=== PATIENT | male | born 1950 | race Caucasian/White ===

== ENCOUNTER 2023-06-30 12:09 | Outpatient (CLI) | payer MEDICARE, OTHER, SELFPAY ==
--- NOTE | 2023-06-30 12:19 | XRR_ITS ---
PROCEDURE INFORMATION: Exam: XR Right Ribs with PA Chest Exam date and time: 06/30/2023 12:22 PM Age: 73 years old Clinical indication: Chest wall pain; Right; Additional info: S22.31xa - fracture of one rib, right side, initial encou. . . TECHNIQUE: Imaging protocol: Radiologic exam of the right ribs with PA chest. Views: 3 views COMPARISON: No relevant prior studies available. FINDINGS: Lungs: Scarring, atelectasis, and/or pneumonitis in the left lower lung. Otherwise, unremarkable. Pleural spaces: Unremarkable. No pleural effusion. No pneumothorax. Heart/Mediastinum: Unremarkable. No cardiomegaly. Diaphragm: Mild elevation of the right hemidiaphragm. Bones/joints: Mild scoliosis with mild multilevel spondylosis. Nondisplaced fractures of the anterolateral right 8th and 9th ribs are suspected. Otherwise, unremarkable. XR/XR ribs RT mn 3V w [id number] IMPRESSION: 1. Fractures of the anterolateral right 8 and 9 ribs are suspected. 2. Scarring, atelectasis, and/or pneumonitis in the left lower lung.
== END 2023-06-30 12:10 | disposition home or self-care (01) ==
LOC: RAD 12:13
PROVIDERS: PCP Registered Nurse; Visit Provider Registered Nurse
DX: S22.31XA Fracture of one rib, right side, initial encounter for closed fracture (principal); X58.XXXA Exposure to other specified factors, initial encounter; R91.8 Other nonspecific abnormal finding of lung field
CPT/HCPCS: 71101

== ENCOUNTER → 2023-08-30 09:31 | Outpatient (BNVA) | payer MEDICARE, OTHER, SELFPAY | PROVIDERS: PCP Registered Nurse; Visit Provider Registered Nurse | DX: Z13.6 Encounter for screening for cardiovascular disorders (principal); E78.5 Hyperlipidemia, unspecified; E55.9 Vitamin D deficiency, unspecified | CPT/HCPCS: 80053; 80061; 82306; 85025 ==

== ENCOUNTER → 2023-09-25 09:05 | Outpatient (BNVA) | payer MEDICARE, OTHER, SELFPAY | PROVIDERS: PCP Registered Nurse; Referring Provider Registered Nurse; Visit Provider Surgery | DX: Z12.11 Encounter for screening for malignant neoplasm of colon (principal) | CPT/HCPCS: 99024; 99204 ==

== ENCOUNTER 2023-10-05 08:45 | Day surgery (SDC) | payer MEDICARE, OTHER, SELFPAY ==
[2023-10-05 08:58] VITALS: BP 136/94; PULSE 92; RESP 18; TEMP 36.4; O2SAT 99; BMI 24.1
[2023-10-05] MEDS: sodium chloride 0.9% 1,000 ML 30 ML IV (09:05)
--- NOTE | 2023-10-05 10:11 | ANES.PREANE2 ---
Pre-Anesthetic Assessment Height/Weight: Height 1.88 m Weight 85.275 kg Temp Pulse Resp BP Pulse Ox O2 Del Method 97.6 F 92 18 136/94 99 Room Air 10/05/23 08:58 10/05/23 08:58 10/05/23 08:58 10/05/23 08:58 10/05/23 08:58 10/05/23 08:58 Preop Diagnosis: screening Operation Date: 10/05/23 10:00 Proposed Procedures p Colonoscopy(Not Applicable) - Mirza Gamez DO Familial anesthetic complications: none Was Beta Juanito taken within 24 hours: N/A Was Clonidine taken within 24 hours: N/A Last intake: Intake Last Liquid Date 10/03/23 Last Liquid Time 22:00 Last Solid Date 10/03/23 Last Solid Time 18:00 Social No alcohol and No tobacco Exam alert and oriented x 3 Airway Submandibular: within normal limits Cervical ROM: within normal limits Mallampati: Class II Dentition: full History/ROS No significant complaints Anesthetic Plan ASA status: 1 Anesthesia: Anesthesia Evaluation, General and MAC Medications/Allergies Home Medications Medication Instructions Recorded Confirmed Last Taken Type finasteride 5 mg tablet 5 mg PO .COMPLEX 12/14/20 10/05/23 10/03/23 History Allergies Allergy/AdvReac Type Severity Reaction Status Date / Time No Known Allergies Allergy Verified 10/05/23 08:57 Current Medications Generic Name Dose Route Start Last Admin Trade Name Freq PRN Reason Stop Dose Admin Sodium Chloride 1,000 mls @ 30 mls/hr 10/05/23 09:00 10/05/23 09:05 Sodium Chloride 0.9% IV 10/06/23 08:59 30 mls/hr .Q24H MARITZA Administration PFSH Anesthesia Medical History BPH (benign prostatic hyperplasia) Surgical History History of transurethral resection of prostate History of hernia repair Social History Smoking and tobacco/nicotine status: never used tobacco/nicotine Alcohol intake: never Substance/Drug Use: never Adopted: No Caregiver/support person: No Lives independently: No Household members: spouse service: Yes status: Retired branch: [employer] branch details: [employer] Current occupational status: retired Sexually active: Yes Do you think of yourself as: Straight/Heterosexual Current gender identity: Male Data Anesthesia Cardiac Studies: No Data to Display
--- NOTE | 2023-10-05 10:36 | W.PM.OPSUD ---
Surgery/Procedure H&P Update DATE OF PROCEDURE: October 05, 2023 DATE H&P PERFORMED: 09/25/23 H&P UPDATE INFORMATION: I have reviewed H&P completed within last 30 days, I have examined patient prior to procedure and No changes to prior documentation PREOP DIAGNOSIS: screening PLANNED PROCEDURE: Operation Date: 10/05/23 10:00 Proposed Procedures p Colonoscopy(Not Applicable) - Mirza Gamez DO
[2023-10-05 11:00] VITALS: BP 115/74; PULSE 80; RESP 17; TEMP 36.1; O2SAT 95
[2023-10-05 11:16] VITALS: BP 129/73; PULSE 72; RESP 18; O2SAT 96
--- NOTE | 2023-10-05 11:49 | ANE.PACU2 ---
Inpatient post-anesthesia follow up: Airway intact: Yes Vital signs: Temperature 97 F Pulse Rate 72 Respiratory Rate 18 Blood Pressure 129/73 Pulse Oximetry 96 Oxygen Delivery Me thod Room Air Oxygen Flow Rate Fraction of Inspir ed Oxygen Hydration adequate: Yes Nausea and vomiting: No Pain level: 1 Mental status: Baseline
== END 2023-10-05 11:30 | disposition home or self-care (01) ==
PROVIDERS: PCP Registered Nurse; Visit Provider Surgery
PROC: 0DJD8ZZ Inspection of Lower Intestinal Tract, Via Natural or Artificial Opening Endoscopic (ICD-10-PCS; CPT 45378; principal; 2023-10-05 10:00)
DX: Z12.11 Encounter for screening for malignant neoplasm of colon (principal); K64.8 Other hemorrhoids; D12.2 Benign neoplasm of ascending colon; D12.5 Benign neoplasm of sigmoid colon; N40.0 Benign prostatic hyperplasia without lower urinary tract symptoms
CPT/HCPCS: 45385; 88305; J2704; J7030

== ENCOUNTER → 2023-11-13 08:28 | Outpatient (BNVA) | payer MEDICARE, OTHER, SELFPAY | PROVIDERS: PCP Registered Nurse; Visit Provider Surgery | DX: Z09 Encounter for follow-up examination after completed treatment for conditions other than malignant neoplasm (principal); D37.4 Neoplasm of uncertain behavior of colon | CPT/HCPCS: 99214 ==

== ENCOUNTER 2024-06-07 15:09 | Outpatient (CLI) | payer MEDICARE, OTHER, SELFPAY ==
--- NOTE | 2024-06-07 15:15 | XR_ITS ---
WS: [id number] Exam: XR foot LT min 3V* [id number] Date/Time of Exam: 06/07/2024 3:27 PM Reason For Exam: M72.2 - Plantar fascial fibromatosis There is periosteal calcification along the proximal fourth metatarsal. This is nonspecific but could be seen with a healed or healing stress fracture. No obvious fracture is visualized. The joints are preserved. Normal soft tissues. XR/XR foot LT min 3V* [id number] IMPRESSION: 1. Periosteal calcification along the lateral aspect of the proximal fourth met atarsal. This is nonspecific but could be seen with a healed or healing stress fracture. No fracture line is visible.
== END 2024-06-07 15:10 | disposition home or self-care (01) ==
LOC: RAD 15:11
PROVIDERS: PCP Registered Nurse; Visit Provider Registered Nurse
DX: M72.2 Plantar fascial fibromatosis (principal); M89.8X7 Other specified disorders of bone, ankle and foot
CPT/HCPCS: 73630

== ENCOUNTER → 2024-06-11 12:55 | Outpatient (BNVA) | payer MEDICARE, OTHER, SELFPAY | PROVIDERS: PCP Registered Nurse; Visit Provider Podiatrist Foot & Ankle Surgery | DX: G58.9 Mononeuropathy, unspecified | CPT/HCPCS: 99203 ==

== ENCOUNTER → 2024-07-23 08:45 | Outpatient (BNVA) | payer MEDICARE, OTHER, SELFPAY | PROVIDERS: PCP Registered Nurse; Visit Provider Podiatrist Foot & Ankle Surgery | DX: M79.672 Pain in left foot; G58.9 Mononeuropathy, unspecified | CPT/HCPCS: 20550 ==

== ENCOUNTER → 2024-08-20 10:47 | Outpatient (BNVA) | payer MEDICARE, OTHER, SELFPAY | PROVIDERS: PCP Registered Nurse; Visit Provider Podiatrist Foot & Ankle Surgery | DX: M79.672 Pain in left foot (principal); G58.9 Mononeuropathy, unspecified; M72.2 Plantar fascial fibromatosis | CPT/HCPCS: 20550; J1100; J3301; J3490 ==